=== PATIENT | male | born 1995 | race Caucasian/White ===

== ENCOUNTER 2021-10-21 20:53 | Emergency (ER) | payer MEDICAID, SELFPAY ==
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
[2021-10-21 22:07] VITALS: BP 111/59; PULSE 84; RESP 18; TEMP 36.8; O2SAT 99; BMI 17.5
[2021-10-22 00:41] VITALS: BP 140/70; PULSE 72; RESP 16; TEMP 36.3; O2SAT 98
[2021-10-22] MEDS: Ibuprofen 400 MG TABLET PO (00:48)
[2021-10-22] MEDS: Acetaminophen 325 MG TABLET 975 MG PO (01:00)
--- NOTE | 2021-10-22 01:03 | PC.NURSE ---
Pt a&o, no sob or chest pain. Provider into assess pt. Medicated per Jul. Pt will be placed in splints for bilateral fracture to arms. Positive CMS
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
[2021-10-22] MEDS: Diphth,Pertus(ACell),Tet Adult 0.5 ML SYRINGE IM (02:17)
[2021-10-22] MEDS: Bacitracin Oint 14 GM TUBE 1 APPL TOPICAL (02:17)
--- NOTE | 2021-10-22 02:57 | PC.NURSE ---
Lift Truck Mechanic called, education on splint care and follow up appointment. Reviewed discharge instructions and Pt verbalized understanding.
== END 2021-10-22 02:58 | disposition home or self-care (01) ==
PROVIDERS: Emergency Provider Student in an Organized Health Care Education/Training Program
DX: S52.91XA Unspecified fracture of right forearm, initial encounter for closed fracture (principal); S52.92XA Unspecified fracture of left forearm, initial encounter for closed fracture; S52.612A Displaced fracture of left ulna styloid process, initial encounter for closed fracture; S40.812A Abrasion of left upper arm, initial encounter; S40.811A Abrasion of right upper arm, initial encounter; R07.89 Other chest pain; R51.9 Headache, unspecified; M25.532 Pain in left wrist; M25.531 Pain in right wrist; M54.2 Cervicalgia; V29.40XA Motorcycle driver injured in collision with unspecified motor vehicles in traffic accident, initial encounter; Y93.9 Activity, unspecified; Y92.9 Unspecified place or not applicable; Y99.9 Unspecified external cause status
CPT/HCPCS: 29105; 70450; 71045; 72125; 73080; 73100; 90471; 90715; 99283; 99284

== ENCOUNTER 2021-10-24 08:24 | Outpatient (REF) | payer MEDICAID, SELFPAY ==
--- NOTE | ~2021-10-24 | XR_ITS ---
EXAMINATION: XR WRIST, LEFT CLINICAL INFORMATION: Pain left wrist COMPARISON: None TECHNIQUE: PA, lateral, and oblique views of the left wrist. FINDINGS: There is a nondisplaced comminuted distal radial fracture with intra-articular extension. Also visualized is a ulnar side process fracture there is mild volar wrist soft tissue swelling. XR/XR wrist LT min 3V IMPRESSION: Nondisplaced comminuted distal radial fracture with intra-articular extension. There is a nondisplaced ulnar styloid process fracture as well. There is mild volar wrist soft tissue swelling.
== END 2021-10-24 08:25 | disposition home or self-care (01) ==
LOC: HO.HOSX 08:24
PROVIDERS: Visit Provider Orthopaedic Surgery
DX: S52.501A Unspecified fracture of the lower end of right radius, initial encounter for closed fracture (principal); S52.502A Unspecified fracture of the lower end of left radius, initial encounter for closed fracture; X58.XXXA Exposure to other specified factors, initial encounter; Y93.9 Activity, unspecified; Y92.9 Unspecified place or not applicable; Y99.9 Unspecified external cause status
CPT/HCPCS: 73110; 99202

== ENCOUNTER 2021-10-31 10:19 | Outpatient (REF) | payer MEDICAID, SELFPAY ==
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
== END 2021-10-31 10:20 | disposition home or self-care (01) ==
LOC: HO.HOSX 10:19
PROVIDERS: Visit Provider Orthopaedic Surgery
DX: M25.532 Pain in left wrist (principal); M25.531 Pain in right wrist
CPT/HCPCS: 73110

== ENCOUNTER 2021-11-13 09:13 | Outpatient (REF) | payer OTHER, SELFPAY ==
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
== END 2021-11-13 09:14 | disposition home or self-care (01) ==
LOC: HO.HOSX 09:13
PROVIDERS: Visit Provider Orthopaedic Surgery
DX: M25.531 Pain in right wrist (principal); M25.532 Pain in left wrist
CPT/HCPCS: 73110

== ENCOUNTER 2021-12-04 10:47 | Outpatient (REF) | payer OTHER, SELFPAY ==
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
== END 2021-12-04 10:48 | disposition home or self-care (01) ==
LOC: HO.HOSX 10:47
PROVIDERS: Visit Provider Orthopaedic Surgery
DX: M25.531 Pain in right wrist (principal); M25.532 Pain in left wrist
CPT/HCPCS: 73110

== ENCOUNTER 2022-01-03 14:00 | Outpatient (RCR) | payer OTHER, SELFPAY | END 2022-03-20 09:15 | disposition home or self-care (01) | LOC: HO.OT 14:00 | PROVIDERS: Visit Provider Orthopaedic Surgery | DX: S52.502A Unspecified fracture of the lower end of left radius, initial encounter for closed fracture (principal); S52.501A Unspecified fracture of the lower end of right radius, initial encounter for closed fracture | CPT/HCPCS: 97110; 97166 ==

== ENCOUNTER 2022-01-15 09:05 | Outpatient (REF) | payer OTHER, SELFPAY | END 2022-01-15 09:06 | disposition home or self-care (01) | LOC: HO.HOSX 09:05 | PROVIDERS: Visit Provider Orthopaedic Surgery | DX: Z13.89 Encounter for screening for other disorder (principal) ==